=== PATIENT | male | born 1990 | race Caucasian/White ===

== ENCOUNTER 2016-08-13 03:06 | Emergency (ER) | payer BC ==
--- NOTE | 2016-08-13 03:22 | Emergency Department Record ---
History of Present Illness - General Chief Complaint: Laceration(s) Stated Complaint: Cut the back of hand Time Seen by Provider: 08/13/16 03:17 Source: Patient, Family Mode of Arrival: Ambulatory Limitations: No limitations - History of Present Illness Initial Commments: 26 yo male presents with a laceration to the dorsal wrist. He was cutting latvian bread with a bread knife. He was acting like it was a sword swinging it around playfully and cut his left wrist. No numbness or tingling. No loss of ROM. His tetanus is up to date. PCP is Dr Mayfield in [place]. He is right handed. No other recent illness. -: Hour(s) (1) Extremity Location: Left: Wrist - Related Data Previous Rx's Medication Instructions Recorded Cephalexin [Keflex] 500 mg PO TID #21 cap 08/13/16 Allergies Allergy/AdvReac Type Severity Reaction Status Date / Time azithromycin [From Zithromax] Allergy DIFFICULTY Verified 08/13/16 03:12 BREATHING Penicillins Allergy DIFFICULTY Verified 08/13/16 03:12 BREATHING Review of Systems Constitutional: Denies: Chills, Fever, Malaise, Weakness Eyes: Denies: Eye discharge, Eye pain ENT: Denies: Congestion Respiratory: Denies: Cough, Dyspnea Cardiovascular: Denies: Chest pain Endocrine: Denies: Polydipsia, Polyuria Gastrointestinal: Denies: Abdominal pain, Diarrhea, Nausea, Vomiting Genitourinary: Denies: Dysuria, Frequency Musculoskeletal: Denies: Arthralgia, Back pain, Neck pain Skin: Denies: Bruising, Change in color Neurological: Denies: Confusion, Headache Psychiatric: Denies: Anxiety Hematological/Lymphatic: Denies: Blood Clots, Easy bleeding, Easy bruising, Swollen glands Physical Exam - General General Appearance: Alert, Oriented x3, Cooperative, No acute distress Limitations: No limitations - Head Head exam: Atraumatic, Normal inspection - Eye Eye exam: Normal appearance - ENT ENT exam: Normal exam - Neck Neck exam: Normal inspection - Respiratory Respiratory exam: negative: Accessory muscle use, Prolonged expiratory - Cardiovascular Peripheral Pulses: 2+: Radial (L) - Rectal Rectal exam: Deferred - exam: Deferred - Extremities Extremities exam: Full ROM, Normal capillary refill, Tenderness. negative: Normal inspection Image of Hand: 1 - 5.5cm laceration, no FB, index extension is intact, thumb extension is intact, the EHL is visible, the extensor adjacent has a visible laceration that appears incomplete, sensation is intact to both sides of each finger, full flexion is intact - Back Back exam: Reports: Full ROM - Neurological Neurological exam: Alert, Normal gait, Oriented X3, Reflexes normal - Psychiatric Psychiatric exam: Normal affect, Normal mood - Skin Skin exam: Dry, Intact, Normal color, Warm Course - Reevaluation(s) Reevaluation #1: Procedure: Betadine Prep Lidocaine 1% with epi The wound was irrigated with 500cc of NS The wound was explored in a bloodless field His EPL was visible and intact through a full ROM His index extensor is visible with a partial laceration The area again irrigated and covered with sterile gauze The patient has a preference of [facility] was contacted for a hand surgery referral 08/13/16 03:36 08/13/16 04:18 Reevaluation #2: No call back from Hand Surgery The wound was irrigated again The wound was closed with 4-0 Ethilon simple interrupted A non adhesive dressing applied The area was padded The wrist was splinted to prevent movement 08/13/16 04:08 [facility] was contacted again No call back at this time I informed [facility] of the plan to fax a referral to Dr. Barton The patient is agreeable with this plan and will call Monday08/13/16 04:17 08/13/16 04:18 08/13/16 06:50 Disposition Disposition: Discharge Clinical Impression: Laceration of wrist Qualifiers: Encounter type: initial encounter Laterality: left Qualified Code(s): S61.512A - Laceration without foreign body of left wrist, initial encounter Extensor tendon laceration of left wrist with open wound Qualifiers: Encounter type: initial encounter Qualified Code(s): S66.922A - Laceration of unspecified muscle, fascia and tendon at wrist and hand level, left hand, initial encounter Disposition: Home, Self-Care Return To Work/School Note Provided: Yes Condition: (1) Good Instructions: Laceration (ED) Additional Instructions: Call the hand surgeon's office on Monday to be seen next available Your information was faxed to Dr Barton Use the splint to prevent movement Take the Keflex 4 times daily Return if pain, warm, red, pus or concerns Prescriptions: Cephalexin [Keflex] 500 mg PO TID #21 cap Referrals: KEVEN BARTON [MEDICAL DOCTOR] - Forms: Patient Portal Access Time of Disposition: 04:08
[2016-08-13] MEDS ORDERED: CEPHALEXIN 500 MG CAPSULE PO STA (04:13)
== END 2016-08-13 04:35 | disposition home or self-care (01) ==
LOC: ER 03:06
DX: S61.512A Laceration without foreign body of left wrist, initial encounter (principal); S66.822A Laceration of other specified muscles, fascia and tendons at wrist and hand level, left hand, initial encounter; W26.0XXA Contact with knife, initial encounter; Y93.G9 Activity, other involving cooking and grilling
CPT/HCPCS: 12002; 99283; 99284